=== PATIENT | female | born 1990 | race Caucasian/White ===

== ENCOUNTER 2021-02-21 14:01 | Emergency (ER) | payer OTHER, SELFPAY ==
[2021-02-21 14:16] VITALS: BP 145/108; PULSE 110; RESP 20; TEMP 37.2; O2SAT 96
--- NOTE | 2021-02-21 14:26 | ED.URI ---
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 Related Data Home Medications Medication Instructions Recorded Confirmed hydrochlorothiazide 25 mg PO DAILY 02/21/21 02/21/21 metformin 500 mg PO BID 02/21/21 02/21/21 Allergies Allergy/AdvReac Type Severity Reaction Status Date / Time No Known Allergies Allergy Verified 02/21/21 14:39 [facility] Family History Family History (Updated 01/15/16 @ 23:21 by DOCTOR UNKNOWN) Sibling Patient's sister is in good health Mother Family history of gastrointestinal disorder Family history of lymphoma Patient's mother is Social History Social History Smoking status: Never smoker Alcohol intake: current Exam Narrative: GENERAL:Well-appearing, well-nourished, and in no acute distress. HEAD:Normocephalic, atraumatic. EYES: PERRLA ENT: Nares clear,mild rhinorrhea Mucous membranes moist. CHEST: Clear to auscultation. No respiratory distress. HEART: Regular rate and rhythm tachycardic Normal peripheral pulses. ABDOMEN: Soft, nontender, nondistended, normal active bowel sounds. EXTREMITIES: Normal range of motion. No edema. SKIN: Warm, dry, no rash. NEURO: No focal deficits. Alert and oriented x3. Course Vital Signs Vital signs: Vital Signs Temperature 99.0 F 02/21/21 14:16 Pulse Rate 110 H 02/21/21 14:16 Respiratory Rate 02/21/21 14:16 Blood Pressure 145/108 H 02/21/21 14:16 Pulse Oximetry 96 02/21/21 14:16 Temperature 99.0 F 02/21/21 14:16 Pulse Rate 110 H 02/21/21 14:16 Respiratory Rate 02/21/21 14:16 Blood Pressure 145/108 H 02/21/21 14:16 Pulse Oximetry 96 02/21/21 14:16 MDM - URI/Sore Throat MDM Narrative Medical decision making narrative: covid-19 negtive, strep negative, influenza negative PCR sent at patient request Differential Diagnosis Differential diagnosis: Likely upper respiratory infection, croup, otitis media, sinusitis, viral infection, bronchitis, influenza and pharyngitis Lab Data Labs: Influenza A Screen Negative Reference Range: Negative Influenza B Screen Negative Reference Range: Negative Strep Screen Presumptive Negative *(Reference Range: Negative)* Discharge Plan Discharge Clinical Impression: Upper respiratory infection Qualifiers: URI type: unspecified viral URI Qualified Code(s): J06.9 - Acute upper respiratory infection, unspecified Hypertension Qualifiers: Hypertension type: primary hypertension Qualified Code(s): I10 - Essential (primary) hypertension Patient Disposition: Home, Self-Care Condition: Stable Instructions: Antibiotic Form, Upper Respiratory Infection (ED), Viral Syndrome (ED), Hypertension (ED), COVID-19: Slow the Coronavirus Spread (ED) Additional Instructions: Viral illness may last between 7-12days; antibiotic is NOT recommended at this time. Recommend antihistamine such as Benadryl at night time and Claritin/Zyrtec/Trish during the day Also, recommend symptomatic treatment includes: rest, fluids, and increase humidity of the air at home. Recommend Acetaminophen or nonsteroidal anti-inflammatory agents (NSAIDs) as directed in the bottle to reduce fever and/pain/headache. Avoid smoking/second-hand smoke. Limit visits to areas with large crowds. Please schedule a follow-up visit with your personal physician for further evaluation and treatment within 3-5days. Including recheck and discussion of your blood pressure. I
[2021-02-22 03:42] LABS: SARS-CoV-2 RNA PCR Negative
== END 2021-02-21 15:09 | disposition home or self-care (01) ==
PROVIDERS: Emergency Provider Nurse Practitioner Family
DX: J06.9 Acute upper respiratory infection, unspecified (principal); I10 Essential (primary) hypertension; Z20.822 Contact with and (suspected) exposure to COVID-19
CPT/HCPCS: 87081; 87426; 87804; 87880; 99213; C9803; G0463; U0003; U0005